=== PATIENT | female | born 1960 | race Caucasian/White ===

== ENCOUNTER 2025-01-10 16:59 | Observation (INO) | payer OTHER ==
[~2025-01-10] VITALS: Ht 154.9 cm; Wt 61.2 kg
[~2025-01-10 16:59] MED LIST: SEVOFLURANE 250 ML BTL INH ONE
[2025-01-10 17:27] LABS: HEMATOCRIT 42.5 % (35.0-50.0); HEMOGLOBIN 14.7 g/dL (12.0-18.0); MCH 28.7 (27-36); MCHC 34.6 g/dl (30-36); MCV 83.1 fl (81-99); PLATELET COUNT 310 K/uL (140-440); RBC 5.12 M/ul (4.3-5.7); RDW 13.7 (10.5-15.0)
[2025-01-10 17:41] LABS: BASOPHILS, MANUAL DIFF 1; EOSINOPHILS, MANUAL DIFF 1; LYMPHOCYTES, MANUAL DIFF 14; MONOCYTES, MANUAL DIFF 8; NEUTROPHILS, MANUAL DIFF 76
[2025-01-10 17:42] LABS: ALBUMIN 3.8 g/dL (3.4-5.0); ANION GAP 14.5 (7-21); BILIRUBIN, TOTAL 0.6 mg/dL (0.2-1.0); BUN/CREATININE RATIO 14.28 (6.0-28.6); CALCIUM 9.4 mg/dL (8.5-10.1); CREATININE, SERUM 0.98 mg/dL (0.55-1.02); POTASSIUM 3.5 mmol/L (3.5-5.1); PROTEIN, TOTAL 7.6 g/dL (6.4-8.2)
[2025-01-10] MEDS ORDERED: metroNIDAZOLE/SODIUM CHLORIDE 500 MG/100 ML PIGGYBACK IV ONE (18:30)
[2025-01-10] MEDS ORDERED: levoFLOXacin 750 MG PIGGYBACK IV ONE (18:30)
[2025-01-10 18:45] LABS: BILIRUBIN, URINE NEGATIVE (negative); BLOOD/HGB, URINE NEGATIVE (Negative); KETONE, URINE TRACE (Negative); LEUK ESTERASE, URINE MODERATE (negative); NITRITE, URINE NEGATIVE (negative)
[2025-01-10 18:54] LABS: CRYSTALS, URINE CALCIUM OXALATE 1+ (0-1+); EPITHELIAL CELLS, URINE SQUAMOUS 1+ /lpf (0-1+)
[2025-01-10 18:55] LABS: BACTERIA, URINE 1+ /hpf (negative); CASTS, URINE NONE SEEN \\lpf; COLLECTION TYPE, URINE CLEAN CATCH; REFLEX CULTURE, URINE No (No)
[2025-01-10] MEDS ORDERED: ondansetron HCL 4 MG/2 ML VIAL IV PRN (19:00)
[2025-01-10] MEDS ORDERED: DEXTROSE 5% - LACTATED RINGERS 1,000 ML IV SCH (19:00)
[2025-01-10] MEDS ORDERED: HYDROmorphone HCL 1 MG/ML SYR IV PRN (19:00)
[2025-01-10 19:34] VITALS: BP 103/69
[2025-01-10 20:05] VITALS: BP 103/69
[2025-01-11] VITALS (12 sets, daily range): BP systolic 115–136; BP diastolic 56–67
[2025-01-11] MEDS ORDERED: DEXTROSE 5% - LACTATED RINGERS 1,000 ML IV SCH (06:45)
[2025-01-11] MEDS ORDERED: ondansetron HCL 4 MG/2 ML VIAL IV PRN ×2 (06:45→09:45)
[2025-01-11] MEDS ORDERED: HYDROmorphone HCL 1 MG/ML SYR IV PRN ×2 (06:45→09:45)
[2025-01-11] MEDS ORDERED: PROCHLORPERAZINE EDISYLATE 10 MG/2 ML VIAL IV PRN (06:45)
[2025-01-11] MEDS ORDERED: ACETAMINOPHEN 325 MG TAB PO PRN (07:00)
[2025-01-11] MEDS ORDERED: OXYCODONE HCL 5 MG TAB PO PRN (07:00)
[2025-01-11] MEDS ORDERED: LIDOCAINE 1% W/ EPI 1:200,000 30 ML SDV ONE (07:41)
[2025-01-11] MEDS ORDERED: BUPIVACAINE HCL 0.25% 50 ML MDV ONE (07:41)
[2025-01-11] MEDS ORDERED: iopamidoL 30 ML VIAL ONE (07:51)
[2025-01-11] MEDS ORDERED: SODIUM CHLORIDE 0.9% 20 ML IV ONE (07:52)
[2025-01-11] MEDS ORDERED: DEXAMETHASONE SOD PHOS 4 MG/ML VIAL ONE (08:26)
[2025-01-11] MEDS ORDERED: LIDOCAINE HCL 2% 5 ML SDV ONE ×2 (08:26→08:45)
[2025-01-11] MEDS ORDERED: dexmedeTOMIDine HCl 200 MCG/2 ML VIAL ONE (08:26)
[2025-01-11] MEDS ORDERED: ACETAMINOPHEN 1,000 MG/100 ML VIAL ONE (08:26)
[2025-01-11] MEDS ORDERED: ROCURONIUM BROMIDE 50 MG/5 ML SYR ONE ×2 (08:26→09:24)
[2025-01-11] MEDS ORDERED: propofoL 200 MG/20 ML VIAL ONE (08:26)
[2025-01-11] MEDS ORDERED: KETAMINE in NS 50 MG/5 ML SYR ONE (08:26)
[2025-01-11] MEDS ORDERED: fentaNYL citrate 100 MCG/2 ML VIAL ONE (08:26)
[2025-01-11] MEDS ORDERED: ondansetron HCL 4 MG/2 ML VIAL ONE (08:26)
[2025-01-11] MEDS ORDERED: metroNIDAZOLE/SODIUM CHLORIDE 500 MG/100 ML PIGGYBACK IV SCH (09:00)
[2025-01-11] MEDS ORDERED: ENOXAPARIN SODIUM 40 MG/0.4 ML SYR SUB-Q SCH (09:00)
[2025-01-11] MEDS ORDERED: KETOROLAC TROMETHAMINE 30 MG/ML VIAL IV PRN (09:45)
[2025-01-11] MEDS ORDERED: IBLOOD GLUCOSE TEST STRIP 1 EA TEST VI PRN (09:45)
[2025-01-11] MEDS ORDERED: fentaNYL citrate 50 MCG/ML SDV IV PRN (09:45)
[2025-01-11] MEDS ORDERED: NALOXONE HCL 0.4 MG SYR IV PRN (09:45)
[2025-01-11] MEDS ORDERED: SUGAMMADEX SODIUM 200 MG/2 ML ML ONE (10:06)
--- NOTE | 2025-01-11 10:31 | CONS ---
[facility] [address] [place], [place] [address] Signed DATE OF CONSULTATION: 01/11/2025 CHIEF COMPLAINT: Right upper quadrant abdominal pain. HISTORY OF PRESENT ILLNESS: Alice is a 64-year-old female who I have known for quite a few years through her . Alice tells me in the last three days maybe even a little longer she has had belt like epigastric abdominal pain and right upper quadrant abdominal pain with some mild nausea. She had gone to our local Urgent Care Clinic. It sounds like no blood work or ultrasound was performed. She was told it was probably her gallbladder. She was asked to follow up with her primary care provider. Her symptoms seem to have gotten worse, so she ended up in our emergency room last night. She is mildly tender in the right upper quadrant and the white count is elevated with normal liver function tests. An ultrasound showed the stones and a nondistended but thickened edematous appearing gallbladder wall with a positive Soria sign and common bile duct normal at 4.4 mm. I have been asked to admit her as a general surgeon on-call. She has received Levaquin and Flagyl and done well overnight. PAST MEDICAL HISTORY: She is hard of hearing. PAST SURGICAL HISTORY: Tonsillectomy. SOCIAL HISTORY: She does not smoke or drink. She is to her , Magno, at [phone]. Dr. Elisa Gómez is her primary care provider. She does drive. 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 She has three children, all born vaginally. FAMILY HISTORY: Dad had an DC. Mom had ovarian cancer. REVIEW OF SYSTEMS: She had 10 systems reviewed and there were no new findings. ALLERGIES: None. MEDICATIONS: None. PHYSICAL EXAMINATION: Electronically Signed By: ELLYN POOL MD 01/11/25 1031 PATIENT NAME: ALICE COMBS CONSULTATION DATE OF : 58 REPORT #: [id number] PHYSICIAN: ELLYN POOL MD PCP: NO PRIMARY CARE PHYSICIAN REPORT IS CONFIDENTIAL AND NOT TO BE RELEASED WITHOUT AUTHORIZATION [facility] [address] [place], [place] [address] Signed VITAL SIGNS: Her blood pressure is 129/67, heart rate 82, respiratory rate 14, temperature is 98.2. She is 98% on room air. She is 5 feet 1 inch tall. She is 60 kg with a body mass index of 25 exam. GENERAL: Alice is a 64-year-old female lying supine, sleeping in her hospital bed. She was easily awakened, alert and interactive. She is clearly hard of hearing and we had to give her hearing aids for her. She is in no acute distress. She is not jaundiced. LUNGS: Clear to auscultation bilaterally. HEART: Regular rate and rhythm without murmurs. ABDOMEN: Mildly tender in the right upper quadrant, but generally flat and soft. LABORATORY DATA: Her white blood cell count is 14.8, hemoglobin 14, neutrophils 76, platelets 310. Creatinine 0.98. Urinalysis had some squamous cells. Total bilirubin 0.6, AST 27, ALT 47, alkaline phosphatase 97, albumin 3.8, lipase 47. RADIOGRAPHIC STUDIES: Ultrasound showed the cholelithiasis and a nondistended gallbladder with some thickening and edema of the gallbladder wall and a positive Soria sign and common bile duct of 4.4 mm. ASSESSMENT AND PLAN: Alice is a 64-year-old female who seems to have cholelithiasis and some evidence of acute cholecystitis. She has been admitted overnight and hydrated and started on antibiotics and pain control. I brought with me a brochure on the gallbladder. We went through it page by page. We looked at the location and function of the gallbladder. We discussed laparoscopic versus open cholecystectomy. We reviewed the expected intraop and postop course. There is risk including, but not limited to bleeding, infection, scarring, change in contour of the skin, damage to bowel, damage to main bile duct, incisional hernias and other unforeseen comorbidities. She has expressed understanding and would like to proceed with her surgery. Ellyn Pool MD ALB/MODL /[id number] cc: Ellyn Pool MD Electronically Signed By: ELLYN POOL MD 01/11/25 1031 PATIENT NAME: ALICE COMBS CONSULTATION DATE OF : 58 REPORT #: [id number] PHYSICIAN: ELLYN POOL MD PCP: NO PRIMARY CARE PHYSICIAN REPORT IS CONFIDENTIAL AND NOT TO BE RELEASED WITHOUT AUTHORIZATION [address] Elisa Gómez Copies: ELLYN POOL MD ~ Electronically Signed By: ELLYN POOL MD 01/11/25 1031 PATIENT NAME: ALICE COMBS CONSULTATION DATE OF : 58 REPORT #: [id number] PHYSICIAN: ELLYN POOL MD PCP: NO PRIMARY CARE PHYSICIAN REPORT IS CONFIDENTIAL AND NOT TO BE RELEASED WITHOUT AUTHORIZATION
[2025-01-11] MEDS ORDERED: OXYCODONE HCL10 MG PO (11:40)
--- NOTE | 2025-01-11 12:07 | EKG ---
[facility] [address] [facility] [place], [place] [address] Signed Normal sinus rhythm Normal ECG No previous ECGs available Confirmed by Joe Sandra MD ([id number]) on 01/11/2025 12:07:11 PM Electronically Signed By: JOE SANDRA MD 01/11/25 1207 PATIENT NAME: LAKHWINDER COMBS Electrocardiogram DATE OF : 58 PHYSICIAN: JOE SANDRA MD REPORT #: [id number] REPORT IS CONFIDENTIAL AND NOT TO BE RELEASED WITHOUT AUTHORIZATION
[2025-01-11] MEDS ORDERED: levoFLOXacin 500 MG PIGGYBACK IV SCH (18:00)
[2025-01-12 00:26] VITALS: BP 131/61
[2025-01-12 00:29] VITALS: BP 131/61
[2025-01-12 05:37] VITALS: BP 135/65
--- NOTE | 2025-01-12 05:38 | OR ---
[facility] [address] [place], [place] [address] Signed DATE OF OPERATION: 01/10/2025 SURGEON: Ellyn Pool MD PREOPERATIVE DIAGNOSIS: Acute cholecystitis with cholelithiasis. POSTOPERATIVE DIAGNOSES: Acute on chronic cholecystitis with cholelithiasis. PROCEDURE: Laparoscopic cholecystectomy with intraoperative cholangiogram (prolonged and difficult at 1 hour and 20 minutes). ESTIMATED BLOOD LOSS: 10 mL. FINDINGS: Alice is a 64-year-old female I have known for some time through her , Magno. Alice had at least three days and then retrospect probably more of right upper quadrant abdominal pain. She had been to the Urgent Care Clinic. Apparently no blood work or x-rays were performed. She was encouraged to go to her primary care provider with concerns of the gallbladder. The pain was not abating, so she came to the local emergency room. In the emergency room, she had some tenderness in the right upper quadrant and elevated white blood cell count. The liver function tests were fine. Lipase was fine. Ultrasound showed her stones in a thickened edematous gallbladder wall. The common bile duct was normal at 4.4 mm. She had a positive Soria sign. I have been asked to admit her as a general surgeon mgmt consultant last evening. She was given Levaquin and Flagyl along with some pain control and IV fluids. This morning I brought Alice a brochure on the gallbladder. We went through it page by page. She understands the location and function of the gallbladder. We discussed laparoscopic versus open cholecystectomy. She understands expected intraop and postop course. There is risk including, but not limited to bleeding, infection, scarring, change in contour of the skin, damage to bowel damage to main bile duct, incisional hernias and other unforeseen comorbidities. She had expressed understanding and wished to proceed. DESCRIPTION OF PROCEDURE: Alice was taken into our operating room and placed in the supine position under general endotracheal tube anesthesia. She was on preoperative antibiotics along with subcutaneous Lovenox. SCDs were in place. She was prepped and draped in the usual Electronically Signed By: ELLYN POOL MD 01/12/25 0538 PATIENT NAME: ALICE COMBS OPERATIVE REPORT DATE OF : 58 REPORT #: [id number] PHYSICIAN: ELLYN POOL MD PCP: NO PRIMARY CARE PHYSICIAN REPORT IS CONFIDENTIAL AND NOT TO BE RELEASED WITHOUT AUTHORIZATION [facility] [address] [place], [place] [address] Signed sterile fashion. All trocars were placed in their usual positions under direct visualization of camera without difficulty. We could easily see the very distended, thick walled gallbladder with greta color. We had elevated the gallbladder into the right upper quadrant. It was very difficult to grasp because it was so tense. We had to suction out the clear fluid from inside the gallbladder. We worked our way down to the neck of the gallbladder. We worked very carefully and brought the fat down bluntly with the help of the ball-tip cautery as well as our [place] dissector. We were able to identify the cystic duct along with the lymph node of [place]. We saw the cystic artery coming up behind the lymph node of Calot and it was clipped and divided. We could see that she had a fairly short cystic duct. We went ahead and removed our clip from the neck of the gallbladder. We made our small cut into the cystic duct where it joins the neck of the gallbladder. We passed the intraoperative cholangiocatheter without difficulty. Intraoperative cholangiogram was then performed. Sure enough she had a short cystic duct stump. We went ahead and secured the stump with a single PDS Endoloop. One clip was then placed on the distal portion of the cystic duct stump to reva its location. We did not see any filling defects in the cystic duct or the common bile duct. The contrast flowed nicely into the duodenum and up into the liver. We then went very slowly and carefully through rather edematous and indurated tissue as we removed the gallbladder from the gallbladder fossa with very slow careful dissection and cautery. Eventually, we had it freed. We placed the gallbladder into an EndoCatch bag. We used our laparoscopic suturing device to pass 0-Vicryl suture on either side of the fascia, subxiphoid trocar site. This was tied down to close the fascia primarily. After this, we had to enlarge our supraumbilical trocar site by a good cm to get the gallbladder and gallstones out of the abdomen. We passed the gallbladder off to our circulating nurse for photodocumentation. It was impressively thick. Our circulating nurse actually had trouble cutting through the wall of the gallbladder. Eventually, it was opened and the stones were brought out onto the table as well for photodocumentation. We closed the supraumbilical fascial defect with several interrupted ykavju-ps-gijlk and simple 0-Vicryl sutures. Local anesthetic was injected into all trocar sites. Each trocar site was irrigated and suctioned out until clear. Skin and dermis of each trocar site were closed with interrupted 3-0 subcuticular Monocryl sutures. Dry gauze and tape were applied to all incisions. After this, Alice was awakened from her anesthesia, extubated in the OR, and taken to recovery room in stable condition. All told, the surgery took 1 hour and 20 minutes, which is well over 20 minutes longer than usual. In this way it was prolonged and difficult. Alice was then extubated and taken into recovery room in stable condition. Ellyn Pool MD Electronically Signed By: ELLYN POOL MD 01/12/25 0538 PATIENT NAME: ALICE COMBSENE OPERATIVE REPORT DATE OF : 58 REPORT #: [id number] PHYSICIAN: ELLYN POOL MD PCP: NO PRIMARY CARE PHYSICIAN REPORT IS CONFIDENTIAL AND NOT TO BE RELEASED WITHOUT AUTHORIZATION [address] [address] Signed [facility] /[id number] cc: MD Dr. Elisa Beal Copies: ELLYN POOL MD ~ Electronically Signed By: ELLYN POOL MD 01/12/25 0538 PATIENT NAME: GARRET,ALICE GEORGE OPERATIVE REPORT DATE OF : 58 REPORT #: [id number] PHYSICIAN: ELLYN POOL MD PCP: NO PRIMARY CARE PHYSICIAN REPORT IS CONFIDENTIAL AND NOT TO BE RELEASED WITHOUT AUTHORIZATION
[2025-01-12 05:41] VITALS: BP 135/65
--- NOTE | 2025-01-12 07:28 | DS ---
[facility] [address] [place], [place] [address] Signed ADMISSION DATE: 01/10/2025 DISCHARGE DATE: 01/12/2025 FINAL DIAGNOSIS: Moderately severe bobxg-pg-qbnvqsw cholelithiasis with cholecystitis. PROCEDURE: 1. Laparoscopic cholecystectomy with intraoperative cholangiogram, prolonged and difficult, at 1 hour and 20 minutes. 2. Ultrasound, right upper quadrant. HISTORY: Alice is a 64-year-old female, who for at least three days was having right upper quadrant abdominal pain. She has had probably longer. She went to our Urgent Care Clinic. She was advised it was probably the gallbladder. She ended up coming to the emergency room. Her white count was elevated. Liver function tests were fine. She was tender in the right upper quadrant. Ultrasound confirmed her cholelithiasis with increased thickening to her gallbladder wall along with some edema. She had a positive Soria sign. The common bile duct was unremarkable. I have been asked to admit her as a general surgeon on-call. HOSPITAL COURSE: Alice was admitted as above and started on IV fluids, Levaquin, Flagyl, and pain control. I had met with her morning. We reviewed the above findings. We took her to the operating room and she underwent a prolonged and difficult laparoscopic cholecystectomy with intraoperative cholangiogram. The intraoperative cholangiogram was unremarkable. She did have moderately severe lfmyo-bs-ewijlul cholecystitis and cholelithiasis. As the day progressed, she just was still feeling weak and fatigued. She explained that her is very small and thin, advanced COPD, on oxygen. She simply did not feel safe going home, that was probably a reaves decision. We kept her overnight and she is doing fine this morning. All the dressings are removed. All the incisions are unremarkable. Her abdomen is soft and flat. She is tolerating her clear liquid diet. She told me she feels safer going home later this morning at this point in time. DISCHARGE PLANS AND MEDICATIONS: We discharged home with oxycodone immediate release 10 mg tablets one p.o. q.8 hours p.r.n. for severe postoperative pain. We will dispense 15 tablets with no refills. She can use Tylenol, ibuprofen, or Aleve as needed for eyfv-eq-eysnbgsp postoperative pain, this can be purchased jctn-mnt-ghnfdlk. She can shower and bathe as usual. She is not to do any heavy pushing, pulling, or lifting over about 20 pounds. 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 She is going to take at least a couple of weeks off work. We will have her back in the office for followup in about 7-14 days. She will bring the paperwork from her employer to the office to be filled out. In the meantime, she is welcome to perform her activities of daily living including walking up and down stairs and showering bathing as usual. She will advance her diet as tolerated at home. She has expressed understanding and agrees with the above plan. Ellyn Pool MD ALB/MODL /[id number] cc: Dr. Elisa Gómez Patient Chart Ellyn Pool MD Copies: ELLYN POOL MD ~ Electronically Signed By: ELLYN POOL MD 01/12/25 0728 PATIENT NAME: ALICE COMBS DISCHARGE SUMMARY DATE OF : 58 REPORT #: [id number] PHYSICIAN: ELLYN POOL MD PCP: NO PRIMARY CARE PHYSICIAN REPORT IS CONFIDENTIAL AND NOT TO BE RELEASED WITHOUT AUTHORIZATION
[2025-01-12 08:41] VITALS: BP 135/65
[2025-01-12 09:15] VITALS: BP 122/59
--- NOTE | 2025-01-13 14:00 | PATH ---
[facility] [address] [facility] [place], [place] [address] Signed SPECIMEN(S): A GALLBLADDER AND STONES SPECIMEN SOURCE: A. GALLBLADDER AND STONES CLINICAL HISTORY: Acute cholecystitis, cholelithiasis FINAL PATHOLOGIC DIAGNOSIS: Gallbladder, cholecystectomy: - Acute and chronic calculous cholecystitis BRP MICROSCOPIC EXAMINATION: Histologic sections of all submitted blocks are examined by light microscopy. These findings, together with the gross examination, support the pathologic diagnosis. GROSS DESCRIPTION: The specimen, labeled and designated "Linda, gallbladder and stones," is received in formalin and consists of Specimen: Previously opened gallbladder. Dimensions: 8.7 x 3.5 x 3.5 cm. Serosa: Violaceous and smooth. Cystic Duct: Unobstructed, margin inked black and shaved. Calculi: Multiple yellow-brown multifaceted calculi (0.5-1.0 cm in greatest dimension, and 5.5 x 3.0 x 1.2 cm in aggregate). Mucosa: Red-brown and trabeculated/velvety. Wall thickness: 0.5-1.2 cm. Lymph node: No pericystic lymph nodes are grossly identified. Additional: None. [employer] sections are submitted in (A1). VB (under the direct supervision of a pathologist) The Gross Description was prepared using a voice recognition system. The report was reviewed for accuracy; however, sound-alike word errors, addition and/or deletions may occur. If there is any question about this report, please contact Client Services. ADDITIONAL NOTES: Immunohistochemical and/or in situ hybridization studies if performed in this case included appropriate positive controls that reacted as expected. This PATIENT NAME: LAKHWINDER COMBS PATHOLOGY DATE OF : 58 REPORT #: [id number] PHYSICIAN: NIKOLAI SOLIS PCP: NO PRIMARY CARE PHYSICIAN REPORT IS CONFIDENTIAL AND NOT TO BE RELEASED WITHOUT AUTHORIZATION [facility] [address] [facility] [place] [address] Signed test was developed and its performance characteristics determined by [facility]. It has not been cleared or approved by the U.S. Food and Drug Administration. The FDA has determined that such clearance or approval is not necessary. This test is used for clinical purposes. It should not be regarded as investigational or for research. [facility] is certified under the Clinical Laboratory Improvement Amendments of 1988 (CLIA) as qualified to perform high complexity clinical laboratory testing. PERFORMING LABORATORY: Technical component was performed by [facility], [address] [place] [id number] (CLIA# [id number]). Professional interpretation was performed by [facility] [address] [address] (CLIA#:[id number]). Diagnostician: Andrews Nava MD Pathologist Electronically Signed 01/13/2025 Copies: ~ PATIENT NAME: LAKHWINDER COMBS PATHOLOGY DATE OF : 58 REPORT #: [id number] PHYSICIAN: NIKOLAI SOLIS PCP: NO PRIMARY CARE PHYSICIAN REPORT IS CONFIDENTIAL AND NOT TO BE RELEASED WITHOUT AUTHORIZATION
== END 2025-01-12 10:26 | disposition home or self-care (01) ==
LOC: ED 16:59 → MS 17:01
PROVIDERS: Emergency Medicine; ADMIT Colon & Rectal Surgery; ATTEND Colon & Rectal Surgery
PROC: BF03YZZ Plain Radiography of Gallbladder and Bile Ducts using Other Contrast (ICD-10-PCS; 2025-01-11)
PROC: 0FT44ZZ Resection of Gallbladder, Percutaneous Endoscopic Approach (ICD-10-PCS; principal; 2025-01-11 08:30)
DX: K80.12 Calculus of gallbladder with acute and chronic cholecystitis without obstruction (principal); H91.90 Unspecified hearing loss, unspecified ear
CPT/HCPCS: 00790; 36415; 74300; 76705; 80053; 81001; 83690; 85025; 93005; 93010; 96365; 96366; 96367; 96374; 96376; 99285-25; A9270; G0378; J0131; J1100; J1650; J1885; J1956; J2003; J2405; J2704; J3010; J3490; J7121; Q9967